=== PATIENT | female | born 1945 | race Caucasian/White ===

== ENCOUNTER 2021-12-16 13:05 | Outpatient (CLI) | payer MEDICARE, SELFPAY ==
--- NOTE | 2021-12-16 13:20 | CRLHL7_ITS ---
For Patients: As a result of the Century Cures Act, medical imaging exams and procedure reports are released immediately into your electronic medical record. You may view this report before your referring provider. If you have questions, please contact your health care provider. BILATERAL SCREENING MAMMOGRAM WITH COMPUTER-AIDED DETECTION TECHNIQUE: CC and MLO views were obtained. These mammographic images have been obtained using full-field digital technique. These mammographic images were interpreted with the benefit of computer-aided detection. COMPARISON FILM: 10/26/20, 10/21/19, 08/23/18. FINDINGS: The breasts are almost entirely fatty IMPRESSION: There is no radiographic evidence for malignancy. ASSESSMENT: BI-RADS Category 1: Negative RECOMMENDATION: Routine screening mammogram in 1 year. A lay language report of this examination will be provided to the patient. Adalberto Freeman M.D. Diagnostic Radiologist [email or web address] SRIRAM/Dictated by: Adalberto Freeman MD @ 12/17/2021 11:05:00 AM (Electronically Signed)
== END 2021-12-16 13:06 | disposition home or self-care (01) ==
LOC: MAMMO 13:11
PROVIDERS: Visit Provider Nurse Practitioner Family
DX: Z12.31 Encounter for screening mammogram for malignant neoplasm of breast (principal)
CPT/HCPCS: 77063; 77067

== ENCOUNTER 2022-02-11 12:06 | Outpatient (CLI) | payer MEDICARE, SELFPAY ==
[2022-02-11 14:40] LABS: Albumin* 4.9 g/dL (3.3-5.0); Chloride* 100 mmol/L (96-114); Sodium* 138 mmol/L (135-149)
[2022-02-11 14:41] LABS: Potassium* 4.2 mmol/L (3.6-5.1)
[2022-02-11 14:43] LABS: Alanine Aminotransferase* 16 U/L (4-35); Alkaline Phosphatase* 56 U/L (40-150); Aspartate Amino Transferase* 30 U/L (12-35); Bilirubin Total* 0.4 mg/dL (0.1-1.5); Blood Urea Nitrogen* 20 mg/dL (7-30); Carbon Dioxide* 29 mmol/L (20-32); Cholesterol* 229 mg/dL (90-199); Creatinine* 0.7 mg/dL (0.5-1.5); Estimated Glomerular Filt Rate 88 ml/min; Glucose* 111 mg/dL (60-115); Total Protein* 7.9 g/dL (6.0-8.3)
[2022-02-11 14:44] LABS: Calcium* 10.2 mg/dL (8.4-10.6); HDL Cholesterol* 64 mg/dL (>=50); LDL Cholesterol Calculated 138 mg/dL (<100); Triglycerides* 136 mg/dL (40-149)
[2022-02-11 15:01] LABS: Vitamin D 25 Hydroxy* 40 ng/mL (30-80)
[2022-02-11 15:36] LABS: Vitamin B12* 643 pg/mL (243-894)
== END 2022-02-11 12:07 | disposition home or self-care (01) ==
PROVIDERS: PCP Nurse Practitioner Family; Visit Provider Family Medicine
DX: Z00.00 Encounter for general adult medical examination without abnormal findings (principal); I10 Essential (primary) hypertension; E53.8 Deficiency of other specified B group vitamins; M85.80 Other specified disorders of bone density and structure, unspecified site; Z13.6 Encounter for screening for cardiovascular disorders
CPT/HCPCS: 80053; 80061; 82306; 82607; 84443

== ENCOUNTER 2023-01-26 13:35 | Outpatient (CLI) | payer MEDICARE, SELFPAY ==
--- NOTE | 2023-01-26 14:00 | CRLHL7_ITS ---
For Patients: As a result of the Century Cures Act, medical imaging exams and procedure reports are released immediately into your electronic medical record. You may view this report before your referring provider. If you have questions, please contact your health care provider. BILATERAL SCREENING MAMMOGRAM WITH COMPUTER-AIDED DETECTION TECHNIQUE: CC and MLO views were obtained. These mammographic images have been obtained using full-field digital technique. These mammographic images were interpreted with the benefit of computer-aided detection. COMPARISON FILM: 12/16/21, 10/26/20, 10/21/19. FINDINGS: There are scattered areas of fibroglandular density IMPRESSION: There is no radiographic evidence for malignancy. ASSESSMENT: BI-RADS Category 1: Negative RECOMMENDATION: Routine screening mammogram in 1 year. A lay language report of this examination will be provided to the patient. Adalberto Freeman M.D. Diagnostic Radiologist [email or web address] Transcribed: 2:52 pm DW/Dictated by: Adalberto Freeman MD @ 01/27/2023 9:12:00 AM (Electronically Signed)
== END 2023-01-26 13:36 | disposition home or self-care (01) ==
LOC: MAMMO 13:37
PROVIDERS: PCP Family Medicine; Visit Provider Family Medicine
DX: Z12.31 Encounter for screening mammogram for malignant neoplasm of breast (principal)
CPT/HCPCS: 77067

== ENCOUNTER 2023-02-09 07:47 | Outpatient (CLI) | payer MEDICARE, SELFPAY | END 2023-02-09 07:48 | disposition home or self-care (01) | LOC: NFLDREF 02-11 14:18 | PROVIDERS: PCP Family Medicine; Referring Provider Family Medicine; Visit Provider Internal Medicine | DX: R30.0 Dysuria (principal); E78.5 Hyperlipidemia, unspecified; M85.80 Other specified disorders of bone density and structure, unspecified site; Z79.899 Other long term (current) drug therapy; I10 Essential (primary) hypertension | CPT/HCPCS: 80053; 80061; 82306; 87086 ==

== ENCOUNTER 2023-08-04 08:55 | Outpatient (CLI) | payer MEDICARE, SELFPAY | END 2023-08-04 08:56 | disposition home or self-care (01) | LOC: NFLDREF 16:51 | PROVIDERS: PCP Family Medicine; Referring Provider Family Medicine; Visit Provider Nurse Practitioner | DX: N30.00 Acute cystitis without hematuria (principal) | CPT/HCPCS: 87086 ==

== ENCOUNTER 2024-02-24 08:49 | Outpatient (CLI) | payer MEDICARE, SELFPAY ==
--- OUTSIDE RECORDS SUMMARY | 2024-02-24 08:51 | XMS_ITS | Clinical Summary ---
Author Organization [employer] [facility] Address [place], [place] [address] Care Team Providers Care Care Coordinator Name Role Phone None Primary Care Provider Unavailabl e Allergies Active Allergy Reactions Criticality Noted Date Comments Oxycodone-Acetaminophen Nausea Only Low 07/06/2013 Medications No known medications Active Problems Problem Noted Date Diagnosed Date S/P total knee arthroplasty 07/06/2013 DVT prophylaxis 07/05/2013 Immunizations Name Administration Dates Next Due Influenza Virus, Unspecified 02/16/2013 Pneumococcal Poly,23-Valent (Pneumovax) 06/05/19 10 Social History Tobacco Use Types Packs/Day Years Used Date Smoking Tobacco: Former Cigarettes Q uit: 06/09/1979 Smokeless Tobacco: Never Alcohol Use Standard Drinks/Week Comments Not Currently 0 (1 standard drink = 0.6 oz pur e alcohol) Sex and Gender Information Value Date Recorded Sex Assigned at Not on file Gender Identity Not on file Sexual Orientation Not on file Obstetrics History Last Filed Vital Signs Vital Sign Reading Time Taken Comments Blood Pressure 185/109 01/13/2022 7:20 AM CDT Pulse 87 01/13/2022 7:20 AM CDT Temperature 36.8 ??C (98.2 ??F) 01/13/2022 7:20 AM CD T Respiratory Rate 18 01/13/2022 7:20 AM CDT Oxygen Saturation 94% 01/13/2022 7:20 AM CDT Inhaled Oxygen Concentration - - Weight 73.7 kg (162 lb 6.4 oz) 01/13/2022 7:20 A M CDT Height 167.6 cm (5' 6) 01/13/2022 7:20 AM CDT Body Mass Index 26.21 01/13/2022 7:20 AM CDT Plan of Treatment Health Maintenance Due Date Last Done Comments Tdap 07/20/1954 Depression screening for age 12+ 1955 BMI (ht and wt on same day) for age 18+ 07/20/1961 Tetanus booster 1963 Zoster (shingles) series for age 50+ (1 of 2) 07/20/1993 DEXA/DXA scan for age 65+ 07/20/2008 Medicare Wellness for age 65+ 07/20/2008 Pneumococcal series for age 65+ (2 of 2 - PCV) 06/05/2010 06/05/2009 RSV vaccine for adults or pr egnancy (1 - 1-dose 75+ series) 07/20/2018 COVID-19 vaccine series ( season) 2024 05/24/2021, 07/10/2020, 06/19/2020 Influenza for age 65+ 01/03/2024 02/16/2013 Advance Directives * Full Code (Latest Code Status on File) Date Activated Date Inactivated Comments 07/01/2013 2:22 PM 07/02/2013 2:55 PM Care Teams Care Coordinator Relationship Specialty Start Date End Date None . PCP - General 01/13/22
--- NOTE | 2024-02-24 09:15 | CRLHL7_ITS ---
For Patients: As a result of the Century Cures Act, medical imaging exams and procedure reports are released immediately into your electronic medical record. You may view this report before your referring provider. If you have questions, please contact your health care provider. BILATERAL SCREENING MAMMOGRAM WITH COMPUTER-AIDED DETECTION AND TOMOSYNTHESIS TECHNIQUE: CC and MLO views were obtained. These mammographic images have been obtained using full-field digital technique. These mammographic images were interpreted with the benefit of computer-aided detection. Breast Tomosynthesis was used in this interpretation. COMPARISON FILM: 01/26/23, 12/16/21, 10/26/20. FINDINGS: There are scattered areas of fibroglandular density IMPRESSION: There is no radiographic evidence for malignancy. ASSESSMENT: BI-RADS Category 1: Negative RECOMMENDATION: Routine screening mammogram in 1 year. A lay language report of this examination will be provided to the patient. Adalberto Freeman M.D. Diagnostic Radiologist [email or web address] SRIRAM/Dictated by: Adalberto Freeman MD @ 02/26/2024 8:50:00 AM (Electronically Signed)
== END 2024-02-24 08:50 | disposition home or self-care (01) ==
LOC: MAMMO 08:50
PROVIDERS: PCP Family Medicine; Visit Provider Family Medicine
DX: Z12.31 Encounter for screening mammogram for malignant neoplasm of breast (principal)
CPT/HCPCS: 77063; 77067

== ENCOUNTER 2024-03-07 08:30 | Outpatient (CLI) | payer MEDICARE, SELFPAY ==
--- OUTSIDE RECORDS SUMMARY | 2024-03-10 03:19 | XMS_ITS | Clinical Summary ---
Author Organization [employer] [facility] Address [place], [place] [address] Care Team Providers Care Card Lacer Jacquard Name Role Phone None Primary Care Provider [...] 2:22 PM 07/02/2013 2:55 PM Care Teams Card Lacer Jacquard Relationship Specialty Start Date End Date None . PCP - General 01/13/22
== END 2024-03-07 08:31 | disposition home or self-care (01) ==
LOC: NFLDREF 03-10 03:17
PROVIDERS: PCP Family Medicine; Referring Provider Family Medicine; Visit Provider Family Medicine
DX: I10 Essential (primary) hypertension (principal); E78.5 Hyperlipidemia, unspecified; R73.01 Impaired fasting glucose; M85.80 Other specified disorders of bone density and structure, unspecified site
CPT/HCPCS: 80053; 80061; 82306

== ENCOUNTER 2025-02-28 10:05 | Outpatient (CLI) | payer MEDICARE, SELFPAY | END 2025-02-28 10:06 | disposition home or self-care (01) | LOC: NFLDREF 03-02 10:19 | PROVIDERS: PCP Family Medicine; Referring Provider Family Medicine; Visit Provider Family Medicine | DX: N39.0 Urinary tract infection, site not specified (principal) | CPT/HCPCS: 87086 ==

== ENCOUNTER 2025-03-06 09:47 | Outpatient (CLI) | payer MEDICARE, SELFPAY | END 2025-03-06 09:48 | disposition home or self-care (01) | LOC: NFLDREF 03-09 11:50 | PROVIDERS: PCP Family Medicine; Referring Provider Family Medicine; Visit Provider Family Medicine | DX: I10 Essential (primary) hypertension (principal); M85.80 Other specified disorders of bone density and structure, unspecified site; E78.00 Pure hypercholesterolemia, unspecified | CPT/HCPCS: 80053; 80061; 82306 ==

== ENCOUNTER 2025-03-08 08:37 | Outpatient (CLI) | payer MEDICARE, SELFPAY | END 2025-03-08 08:38 | disposition home or self-care (01) | LOC: NFLDREF 08:37 | PROVIDERS: PCP Family Medicine; Visit Provider Family Medicine | DX: N39.0 Urinary tract infection, site not specified (principal); R31.9 Hematuria, unspecified | CPT/HCPCS: 87086 ==

== ENCOUNTER 2025-03-23 11:18 | Outpatient (CLI) | payer MEDICARE, SELFPAY ==
--- NOTE | 2025-03-23 11:30 | CRLHL7_ITS ---
For Patients: As a result of the Century Cures Act, medical imaging exams and procedure reports are released immediately into your electronic medical record. You may view this report before your referring provider. If you have questions, please contact your health care provider. INDICATION: BILATERAL SCREENING MAMMOGRAM, ASYMPTOMATIC 79 Y/O FEMALE COMPARISON: 02/24/2024, 01/26/2023, 12/16/2021 TECHNIQUE: Digital mammogram in CC and MLO projections including computer-aided detection (CAD) and tomosynthesis. BREAST COMPOSITION: There are scattered areas of fibroglandular density. FINDINGS: No suspicious findings. ASSESSMENT: BI-RADS 1 Negative RECOMMENDATION: Annual screening mammogram. A lay language report of this examination will be provided to the patient. Dictated by: Adalberto Freeman MD @ 03/23/2025 12:49:36 (Electronically Signed)
== END 2025-03-23 11:19 | disposition home or self-care (01) ==
LOC: MAMMO 11:19
PROVIDERS: PCP Family Medicine; Visit Provider Family Medicine
DX: Z12.31 Encounter for screening mammogram for malignant neoplasm of breast (principal)
CPT/HCPCS: 77063; 77067